=== PATIENT | male | born 1975 | race Caucasian/White ===

== ENCOUNTER 2016-06-07 07:24 | Emergency (ER) | payer OTHER ==
--- NOTE | 2016-06-07 07:34 | UCPHY ---
H & P Time Seen by Provider: 06/07/16 07:33 Patient Type: New HPI/ROS: 41-year-old male presents complaining a sensation of chest tightness or difficulty getting a deep breath that awoke him from sleep but after he focused on his breathing he now feels that he is able to breathe much better. He has had some cold symptoms over the last 4 days with cough and nasal congestion but currently does not have much cough. He has no prior history of asthma or COPD He denies recent long travel he denies leg injury leg swelling leg pain. He smokes lightly both tobacco and cannabis. He denies nausea, vomiting, diaphoresis, arm numbness or tingling, neck pain., jaw pain. Review of systems As per HPI cold symptoms, shortness of breath General no fever no chills no weakness HEENT no eye pain no eye discharge. No eye redness, no sore throat Respiratory positive cough, positive shortness of breath Cardiac no chest pain, no peripheral edema GI no abdominal pain, no diarrhea, no constipation, no nausea, no vomiting no flank pain, no hematuria, no dysuria Musculoskeletal no myalgias, no joint pain Heme no easy bruising, no easy bleeding Endo no polyuria, no polydipsia Skin no rashes, no pruritus Neuro no syncope, no dizziness, no headaches Psych is no suicidal ideation, no homicidal ideation Past Medical/Surgical History: None Social History: Smokes tobacco and cannabis intermittently Alcohol socially Smoking Status: Current some day smoker Constitutional: Initial Vital Signs Temperature (C) 36.7 C 06/07/16 07:36 Heart Rate 78 06/07/16 07:36 Respiratory Rate 16 06/07/16 07:36 Blood Pressure 144/70 H 06/07/16 07:36 O2 Sat (%) 96 06/07/16 07:36 O2 Delivery Mode Room Air Allergies/Adverse Reactions: No Known Allergies Allergy (Unverified 06/07/16 07:40) Home Medications: Medication Instructions Recorded NK [No Known Home Meds] 06/07/16 Medical Decision Making - Diagnostics EKG Interpretation: Completed at 7:48 seven forty eight a.m. EKG-normal sinus rhythm, no ectopy no ischemic changes Imaging: Chest x-ray negative ED Course/Re-evaluation: Patient seen and evaluated for burning with deep breath, hurts to breathe. Differential diagnosis URI, bronchitis, pharyngitis, pneumonia, pulmonary embolus Perc negative Chest x-ray negative EKG normal sinus rhythm rate of 60 no ischemia Physical exam completely normal Lungs clear to auscultation bilaterally Impression Airway irritation, mild bronchitis Plan Rest, drink plenty of fluids Use humidifier Cut back on smoking Return if worse Departure - Departure Disposition: Home, Routine, Self-Care Clinical Impression: Bronchitis Condition: Good Instructions: Acute Bronchitis (ED) Referrals: SRINIVAS WAYNE [Primary Care Provider] - As per Instructions - PQRS PQRS Measurement: na
[2016-06-07 07:40] VITALS: BP 144/70; PULSE 78; RESP 16; TEMP 98.1; O2SAT 96
--- NOTE | 2016-06-07 07:50 | CPEKG ---
Heart Rate: 60 RR Interval: 1000 P-R Interval: 156 QRSD Interval: 80 QT Interval: 376 QTC Interval: 376 P Sewell: 58 QRS Sewell: 54 T Wave Sewell: 54 EKG Severity - NORMAL ECG - EKG Impression: SINUS RHYTHM Electronically Signed By: Giovanni Mayorga 08-Jun-2016 14:18:19
--- NOTE | 2016-06-07 10:55 | DX ---
Chest, Two Views at 0756 hours History: Cough, chest pain. Comparison: July 2008 Findings: Cardiac silhouette is within normal range. Pleuroparenchymal scarring right upper lobe. No pneumonia, congestive heart failure, pleural effusion, or pneumothorax. Pleuroparenchymal scarring bi lateral lung apices again noted. Impression: 1. Stable pleuroparenchymal scarring right upper lobe. 2. No acute pneumonia or pneumothorax
== END 2016-06-07 08:59 | disposition home or self-care (01) ==
LOC: CED 07:24
DX: J20.9 Acute bronchitis, unspecified (principal); R09.81 Nasal congestion; Z72.0 Tobacco use; F12.90 Cannabis use, unspecified, uncomplicated
CPT/HCPCS: 71020-PO; G0463-PO